=== PATIENT | male | born 1975 | race Caucasian/White ===

== ENCOUNTER 2018-07-11 17:41 | Emergency (ER) | payer BC ==
--- NOTE | 2018-07-11 18:24 | EDM.PDOC ---
ED HPI GENERAL MEDICAL PROBLEM - General Chief Complaint: Laceration Stated Complaint: CHUNK OUT OF THUMB Time Seen by Provider: 07/11/18 18:18 Source of Information: Reports: Patient History Limitations: Reports: No Limitations - History of Present Illness INITIAL COMMENTS - FREE TEXT/NARRATIVE: This 43 yo male patient reports to the ED with a laceration to his right thumb. The patient reports he was using a Mandelin slicer and got his finger too close to the blade. The patient has applied direct pressure to the area. Onset: Today Duration: Minutes: Location: Reports: Upper Extremity, Right Quality: Reports: Other Severity: Mild Improves with: Reports: None Worsens with: Reports: None Context: Reports: Other Associated Symptoms: Reports: No Other Symptoms Right Hand Pain Score (Numeric/FACES): 10 - Related Data Allergies Allergy/AdvReac Type Severity Reaction Status Date / Time No Known Allergies Allergy Verified 07/11/18 17:58 Home Meds: Home Meds Escitalopram [Lexapro] 10 mg PO DAILY 07/11/18 [History] Pantoprazole [ProTONIX] 40 mg PO DAILY 07/11/18 [History] Past Medical History HEENT History: Reports: None Cardiovascular History: Reports: None Respiratory History: Reports: None Gastrointestinal History: Reports: None Genitourinary History: Reports: None Musculoskeletal History: Reports: None Neurological History: Reports: None Psychiatric History: Reports: Depression Endocrine/Metabolic History: Reports: None Hematologic History: Reports: None Immunologic History: Reports: None Oncologic (Cancer) History: Reports: None Dermatologic History: Reports: None Social & Family History - Tobacco Use Smoking Status *Q: Never Smoker - Recreational Drug Use Recreational Drug Use: No ED ROS GENERAL - Review of Systems Review Of Systems: ROS reveals no pertinent complaints other than HPI. ED EXAM, SKIN/RASH Exam: See Below Exam Limited By: No Limitations General Appearance: Alert, WD/WN, No Apparent Distress Eye Exam: Bilateral Eye: EOMI, Normal Inspection Ears: Normal External Exam Respiratory/Chest: No Respiratory Distress Cardiovascular: Normal Peripheral Pulses, Regular Rate, Rhythm, No Edema, No Gallop, No JVD, No Murmur, No Rub GI/Abdominal: Normal Bowel Sounds, Soft, Non-Tender, No Organomegaly, No Distention, No Abnormal Bruit, No Mass (Male) Exam: Deferred Rectal (Males) Exam: Deferred Back Exam: Normal Inspection, Full Range of Motion, NT Extremities: Normal Inspection, Normal Range of Motion, Non-Tender, No Pedal Edema, Normal Capillary Refill Neurological: Alert, Oriented Psychiatric: Normal Affect, Normal Mood Skin: Warm, Dry Location, Skin: Upper Extremity, Right Characteristics: Linear Lymphatic: No Adenopathy Course - Vital Signs Last Recorded V/S: Last Vital Signs Temp 36.1 C 07/11/18 18:05 Pulse 65 07/11/18 18:05 Resp 18 07/11/18 18:05 BP 95/56 L 07/11/18 18:05 Pulse Ox 100 07/11/18 18:05 Departure - Departure Time of Disposition: 18:20 Disposition: Home, Self-Care 01 Condition: Fair Clinical Impression: Laceration of right thumb Qualifiers: Encounter type: initial encounter Damage to nail status: without damage Foreign body presence: with foreign body Qualified Code(s): S61.021A - Laceration with foreign body of right thumb without damage to nail, initial encounter - Discharge Information *PRESCRIPTION DRUG MONITORING PROGRAM REVIEWED*: Not Applicable *COPY OF PRESCRIPTION DRUG MONITORING REPORT IN PATIENT ERIC: Not Applicable Instructions: Laceration Care, Adult, [id number] Forms: ED Department Discharge Care Plan Goals: The patient was advised of the examination results during the visit. The patient 's wound was dressed with surgicel as well as a bandage for compression. The patient was advised to keep the area clean and dry over the next 48 hours. If the patient has any additional symptoms or concerns, the patient should either return to the emergency department or visit his primary care facility.
== END 2018-07-11 18:29 | disposition home or self-care (01) ==
LOC: DL.ED 17:41
DX: S61.021A Laceration with foreign body of right thumb without damage to nail, initial encounter (principal); W26.8XXA Contact with other sharp object(s), not elsewhere classified, initial encounter
CPT/HCPCS: 99282

== ENCOUNTER 2019-05-31 06:42 | Day surgery (SDC) | payer OTHER, BC ==
[~2019-05-31 06:42] MED LIST: Benzocaine 20% Topical Spray UD MUCMEM ONE; Midazolam 1 MG/ML 2 ML SDV ONE
[2019-05-31] MEDS ORDERED: Midazolam 1 MG/ML 2 ML SDV IV ONE ×6 (06:43→07:25)
[2019-05-31] MEDS ORDERED: Benzocaine 20% Topical Spray UD MUCMEM ONE (07:21)
[2019-05-31] MEDS ORDERED: Midazolam 1 MG/ML 2 ML SDV ONE (07:25)
[2019-05-31] MEDS ORDERED: Dextrose 5%-0.45% NaCl 1,000 ML IV SCH (07:30)
--- NOTE | 2019-05-31 07:48 | OR ---
DATE: 05/31/2019 PREOPERATIVE DIAGNOSIS: Gastroesophageal reflux disease. POSTOPERATIVE DIAGNOSIS: Gastroesophageal reflux disease. PROCEDURE: Esophagogastroduodenoscopy with photographs and biopsy. ANESTHESIA: Conscious sedation with IV Versed. SPECIMEN: ANTONI biopsy, gastric antrum biopsy, and polyp biopsy. OPERATIVE FINDINGS: No hernia or reflux esophagitis. He does have multiple hyperplastic polyps of the stomach, and a moderate amount of gastritis, especially in the pre-pyloric antral area. RECOMMENDATION: Pathology pending, but this most likely just represents gastritis. He may have reflux, but I do not find any evidence of that or hiatal hernia. If reflux seems to be still significant, we would recommend a 24-hour pH monitor. PROCEDURE IN DETAIL: After adequate preparation, the gastroscope was inserted into the esophagus. This was passed down to the distal esophagus. He shows no evidence of a hiatal hernia or distal esophagitis. There were no masses or bleeding sites. The scope was advanced into the stomach. He has a moderate amount of pre-pyloric longitudinal streaks with some superficial appearing ulcerations along these. He also has at least a dozen or 15 hyperplastic- appearing polyps. A biopsy of the pre-pyloric area was taken for H. pylori analysis. I also did a permanent section of the gastritis streaks and a benefits representative biopsy of one of the polyps. The scope was advanced through the pylorus, the duodenum appeared to be normal. No evidence of ulcerations. On withdrawal of the scope, it was retroflexed in the stomach. I did not see any evidence again of a hiatal hernia. Air was suctioned from the stomach, and the scope removed. [facility] /[id number]
== END 2019-05-31 09:35 | disposition home or self-care (01) ==
LOC: DL.ENDO 06:42
PROVIDERS: ATTEND Surgery
DX: K21.9 Gastro-esophageal reflux disease without esophagitis (principal); K31.89 Other diseases of stomach and duodenum; K29.00 Acute gastritis without bleeding; K29.50 Unspecified chronic gastritis without bleeding; Z79.899 Other long term (current) drug therapy
CPT/HCPCS: 43239; 87077; A9270; J2250; J7042